=== PATIENT | male | born 1975 | race Caucasian/White ===

== ENCOUNTER 2018-05-27 06:07 | Emergency (ER) | payer OTHER ==
[~2018-05-27] VITALS: Ht 193 cm; Wt 83.9 kg
[2018-05-27 06:48] LABS: ABSOLUTE BASOPHILS 0.1 thou/uL (0.0-0.2); ABSOLUTE EOSINOPHILS 0.2 thou/uL (0.0-0.7); ABSOLUTE LYMPHOCYTES 1.7 thou/uL (0.8-5.3); ABSOLUTE MONOCYTES 0.7 thou/uL (0.0-1.2); ABSOLUTE NEUTROPHILS 6.1 thou/uL (1.6-8.1); BASOPHILS 1.1 %; EOSINOPHILS 2.2 %; HEMATOCRIT 42.5 % (42.0-52.0); HEMOGLOBIN 14.1 gm/dL (14.0-18.0); LYMPHOCYTES 19.4 %; MCH 31.4 pg (26.0-34.0); MCHC 33.2 g/dL (28.0-37.0); MCV 94.7 fL (80.0-100.0); MONOCYTES 8.4 %; MPV 10.1 fl. (7.2-11.1); NUCLEATED RBCS 0 /100WBC; PLATELET COUNT* 172 thou/uL (150-400); POLYS 68.9 %; RBC 4.49 mil/uL (4.50-6.00); RDW-CV 13.2 % (10.5-14.5); WBC 8.9 thou/uL (4.0-11.0)
[2018-05-27 06:57] LABS: ANION GAP 8 mmol/L (7-16); BUN 15 mg/dL (7-18); CHLORIDE 101 mmol/L (98-107); CO2 28 mmol/L (21-32); GLUCOSE 108 mg/dL (70-99); POTASSIUM 3.7 mmol/L (3.5-5.1); SODIUM 137 mmol/L (136-145)
[2018-05-27 07:01] LABS: URINE BILIRUBIN NEGATIVE (Negative); URINE BLOOD NEGATIVE (Negative); URINE CLARITY CLEAR; URINE COLOR YELLOW; URINE GLUCOSE-RANDOM NEGATIVE (Negative); URINE KETONES NEGATIVE (Negative); URINE LEUKOCYTES-REFLEX NEGATIVE (Negative); URINE NITRITE-REFLEX NEGATIVE (Negative); URINE PROTEIN NEGATIVE (Negative); URINE UROBILINOGEN 0.2 E.U./dl (0.2-1.0)
[2018-05-27 07:05] LABS: AMP/METHAMP Negative (Negative); BARBITURATES Negative (Negative); BENZODIAZEPINES Negative (Negative); COCAINE Negative (Negative); METHADONE Negative (Negative); OPIATES Negative (Negative); PCP Negative (Negative); THC Negative (Negative)
[2018-05-27 07:05] LABS: ALKALINE PHOSPHATASE 65 U/L (46-116); NT-PRO BRAIN NAT PEPTIDE 47 pg/mL (<300); SGOT 22 U/L (15-37); SGPT 37 U/L (30-65); TOTAL BILIRUBIN 0.7 mg/dL (<0.1-1.0); TOTAL PROTEIN 7.8 g/dL (6.4-8.2); TROPONIN-I LEVEL <0.06 ng/mL (<0.06)
[2018-05-27] MEDS ORDERED: ZESTRIL10 MG PO (07:29)
[2018-05-27 07:37] VITALS: BP 150/105
--- NOTE | 2018-05-27 15:08 | EKG ---
[place] [address] ELECTROCARDIOGRAM REPORT Name: CLYDE RASHID [facility] [id number] Admission: 05/27/18 Attend Phys: Discharge: 05/27/18 Date of : 77 Report #: [id number] THIS REPORT FOR: //name// [facility] ED Test Date: 2018-05-27 Test Time: 06:33:53 Pat Name: CLYDE RASHID Department: Room: Gender: M Pick Up Driver: HERIBERTO : 1975 Requested By: Roxy Kerns Order Number: [id number] MD: Cooper Gomes Measurements Intervals [place] Rate: 77 P: 35 SD: 150 QRS: 40 QRSD: 95 T: 39 QT: 356 QTc: 401 Interpretive Statements Sinus rhythm No previous ECG available for comparison Electronically Signed On 05-27-2018 15:07:51 CDT by Cooper Gomes [email or web address] <ELECTRONICALLY SIGNED> By: Cooper Gomes MD, [facility] 05/27/18 1507 [id number] Cooper Gomes MD, FACC /EPI
== END 2018-05-27 07:39 | disposition home or self-care (01) ==
LOC: M.ERS 06:07
PROVIDERS: Emergency Medicine
DX: I10 Essential (primary) hypertension (principal); F17.210 Nicotine dependence, cigarettes, uncomplicated; Z88.2 Allergy status to sulfonamides; Z79.899 Other long term (current) drug therapy

== ENCOUNTER 2018-06-30 07:34 | Emergency (ER) | payer OTHER ==
[~2018-06-30] VITALS: Ht 193 cm; Wt 85.8 kg
[~2018-06-30 07:34] MED LIST: ZESTRIL10 MG PO
[2018-06-30] MEDS ORDERED: HYDROCODONE-AP1 EAC6 PO (08:44)
[2018-06-30 09:05] VITALS: BP 134/87
== END 2018-06-30 09:18 | disposition home or self-care (01) ==
LOC: M.ERS 07:34
DX: S82.831A Other fracture of upper and lower end of right fibula, initial encounter for closed fracture (principal); I10 Essential (primary) hypertension; Z88.2 Allergy status to sulfonamides; W01.0XXA Fall on same level from slipping, tripping and stumbling without subsequent striking against object, initial encounter; Y93.89 Activity, other specified; Y92.89 Other specified places as the place of occurrence of the external cause; Y99.8 Other external cause status

== ENCOUNTER → 2018-10-25 | Outpatient (CLI) | payer OTHER ==
[~2018-10-25] MED LIST changes: +HYDROCODONE-AP1 EAC6 PO
== END ==
LOC: M.MRI 08:04
DX: J01.20 Acute ethmoidal sinusitis, unspecified (principal); E22.1 Hyperprolactinemia